=== PATIENT | female | born 2000 | race Two or more races ===

== ENCOUNTER 2022-02-13 14:41 | Emergency (ER) | payer OTHER ==
[~2022-02-13] VITALS: Ht 167.6 cm; Wt 54.4 kg
== END 2022-02-13 21:24 | disposition home or self-care (01) ==
LOC: ER 14:41 → EMR PED 15:25 → ER 15:25 → EMR PED 21:24
DX: R10.2 Pelvic and perineal pain (principal); R30.1 Vesical tenesmus; Z20.822 Contact with and (suspected) exposure to COVID-19